=== PATIENT | male | born 1990 | race Asian ===

== ENCOUNTER 2020-10-21 18:19 | Emergency (ER) | payer OTHER, SELFPAY ==
[2020-10-21 18:20] VITALS: BP 98/69; PULSE 115; RESP 17; TEMP 35.4; O2SAT 97; BMI 29.4
[2020-10-21 21:33] VITALS: BP 122/72; PULSE 90; RESP 19; TEMP 38.7; O2SAT 97
[2020-10-21] MEDS: 0.9% Normal Saline 1,000 ML 1000 ML IV (21:37)
[2020-10-21] MEDS: Ketorolac 30 MG/ML Syringe IV (21:38)
--- NOTE | 2020-10-21 21:42 | RAD_ITS ---
INDICATION: cough EXAMINATION/TECHNIQUE: X-RAY - XR Chest 1 View COMPARISON: None. FINDINGS: Subtle bilateral airspace opacities. The cardiomediastinal silhouette is unremarkable. No pleural effusion or pneumothorax. No acute osseous abnormalities. RAD/Chest 1 View (Portable) IMPRESSION: Subtle bilateral airspace opacities could represent infection in the correct clinical setting. Electronically Signed: Marino Grimm MD at 22:18 EDT Tel , Service support ,
[2020-10-21 22:18] LABS: D-Dimer Quantitative (DVT/PE) 0.82 FEU/ug/m (0.27-0.49)
--- NOTE | 2020-10-21 22:28 | ED.RN ---
ddimer elevated 0.82 dr notified
[2020-10-21] MEDS: Acetaminophen 500 MG Tablet 1000 MG PO (22:52)
[2020-10-21 22:54] VITALS: BP 112/62; PULSE 100; PULSE 94; RESP 20; TEMP 37.7; O2SAT 96
[2020-10-21 22:56] VITALS: BP 112/62; PULSE 104; RESP 20; TEMP 37.7; O2SAT 95
--- NOTE | 2020-10-21 23:30 | CT_ITS ---
EXAM: CT ANGIOGRAPHY CHEST WITHOUT AND WITH INTRAVENOUS CONTRAST : 1990 CLINICAL INDICATION: elevated d dimer TECHNIQUE: Helically acquired angiography images were obtained of the chest without and with intravenous contrast. This CT exam was performed using one or more of the following dose reduction techniques: automated exposure control, adjustment of the mA and/or kV according to patient size, and/or use of iterative reconstruction technique. This report was created using [employer] report generation technology. MIP reconstructed images were created and reviewed. CONTRAST: IV 100mL [id number] COMPARISON: None. FINDINGS: PULMONARY ARTERIES: Unremarkable. Normal in caliber. No evidence of pulmonary embolism. AORTA: Unremarkable. Normal in caliber. No evidence of dissection. GREAT VESSELS OF AORTIC ARCH: Unremarkable. Normal in caliber. No evidence of dissection. LUNGS AND PLEURAL SPACES: There are groundglass opacities seen within both lungs No mass. No pleural effusion or thickening. No pneumothorax. HEART: Unremarkable. Heart size is normal. No pericardial effusion. No signs of right heart strain. MEDIASTINUM: Unremarkable. No mediastinal or hilar adenopathy. Esophagus is unremarkable. No hiatal hernia. THYROID: Unremarkable. No thyroid lesions. BONES/JOINTS: Unremarkable. No suspicious lytic or blastic abnormality. CT/CTA Chest W/WO Contrast IMPRESSION: 1. No evidence of pulmonary embolus. 2. Bilateral groundglass opacities. Imaging features can be seen with COVID 19 pneumonia, though are nonspecific and can occur with a variety of infectious and noninfectious processes. Individualized dose optimization techniques were used for this CT. at 0018 Reported and signed by: Waylon Espinoza MD Electronically Signed: Waylon Espinoza MD at 0:16 EDT Tel , Service support ,
--- NOTE | 2020-10-22 00:31 | EX.ED.DYSGE1 ---
HPI History of Present Illness Chief Complaint: Fever Informant: patient Narrative Narrative: 30-year-old male presenting with fever. Patient states this started 1 week ago. He complains of fever, chills. He complains of sore throat and painful swallowing. Denies difficulty swallowing. He complains of shortness of breath and cough. He complains of myalgias. He denies loss of sense of taste or smell. Denies known exposure to Covid. He did recently travel to [place] by car. He has been taking ibuprofen for his fever. He denies sick contacts. Denies abdominal pain, vomiting, diarrhea. Denies other complaints. Recent Illness/Hospitalization: No PFSH PFSH Allergy/AdvReac Type Severity Reaction Status Date / Time No Known Allergies Allergy Verified 10/21/20 18:20 Social History Smoking Status: Never smoker ROS ROS ED Constitutional Constitutional ED: Reports chills and fever(s) Eyes Eyes: Denies change in vision ENT ENT ED: Reports sore throat; Denies rhinorrhea Cardiovascular Cardiovascular: Denies chest pain or palpitations Respiratory/Chest Respiratory/Chest: Reports cough and dyspnea Gastrointestinal Gastrointestinal: Denies abdominal pain, diarrhea, nausea or vomiting Genitourinary Genitourinary ED: Denies dysuria Musculoskeletal Musculoskeletal: Reports myalgias Integumentary Denies rash Neurologic Neurologic: Reports headache(s) Psychiatric Psychiatric: Denies suicidal thoughts EXAM Physical Exam Const Vital Signs: 10/21/20 18:20 10/21/20 21:33 10/21/20 21:39 Temperature 95.7 F L 101.6 F H Temperature Source Temporal Oral Pulse Rate 115 H 90 Respiratory Rate 17 19 H Respiratory Pattern Tachypnea Blood Pressure 98/69 122/72 H Blood Pressure Mean 78 88 Pulse Ox 97 97 Oxygen Delivery Method Room Air Room Air 10/21/20 22:54 10/21/20 22:56 10/22/20 01:03 Temperature 99.9 F H 99.8 F H 98.7 F Temperature Source Oral Oral Oral Pulse Rate 100 104 H 94 Respiratory Rate 20 H 20 H 16 Respiratory Pattern Blood Pressure 112/62 112/62 103/66 Blood Pressure Mean 78 78 78 Pulse Ox 96 95 94 Oxygen Delivery Method Room Air Room Air Room Air 10/22/20 01:04 Temperature 99.8 F H Temperature Source Pulse Rate 101 H Respiratory Rate 18 Respiratory Pattern Blood Pressure 103/66 Blood Pressure Mean Pulse Ox 95 Oxygen Delivery Method Positive well nourished and well developed General Appearance ED: well developed HEENT Reports normocephalic and head/scalp atraumatic HEENT Narrative: Pharyngeal erythema with no exudate. Uvula midline Eyes PERRL and EOMs intact bilaterally Neck supple Neck Narrative: No meningismus General: Negative for tenderness Chest Wall inspection of chest normal Resp normal respiratory effort and clear to auscultation bilaterally Cardio regular rate and regular rhythm GI non-tender and non-distended Palpation: soft; Negative for guarding or rebound tenderness present no CVA tenderness Extremity normal to inspection Neuro oriented x3 Sensorium / Orientation: alert Psych mental status grossly normal Skin no rashes or lesions noted MDM MDM MDM Narrative Medical decision making narrative: Patient was given IV fluids, Toradol. He then developed fever and was given Tylenol with improvement. Covid is negative. Rapid strep negative. Due to elevated D-dimer, CTA chest was obtained. CTA chest shows bilateral opacities which may be seen with COVID-19. No evidence of PE. Due to his symptoms and CT findings Covid PCR was ordered. Ambulatory pulse ox remains 93 to 95% on room air. 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 Advised return to ED for worsening complaints. Lab Data Attestation: I reviewed the patient's lab results. Labs: Laboratory Results - last 24 hr 10/21/20 21:30 D-Dimer Quant (PE/DVT) 0.82 H* Radiography Diagnostic Testing: Radiology Impression Chest X-Ray 10/21/20 21:42 IMPRESSION: Subtle bilateral airspace opacities could represent infection in the correct clinical setting. Electronically Signed: Marino Grimm MD at 22:18 EDT Tel , Service support , Chest CTA 10/21/20 23:30 IMPRESSION: 1. No evidence of pulmonary embolus. 2. Bilateral groundglass opacities. Imaging features can be seen with COVID 19 pneumonia, though are nonspecific and can occur with a variety of infectious and noninfectious processes. Individualized dose optimization techniques were used for this CT. at 0018 Reported and signed by: Waylon Espinoza MD Electronically Signed: Waylon Espinoza MD at 0:16 EDT Tel , Service support , Discharge Plan Triage Chief Complaint: Fever ED Provider: Jacqueline Karimi Dx/Rx/DC Orders Clinical Impression: Acute viral syndrome Instructions: ED Viral Syndrome (Adult) Primary Care Provider: Care Physician,No Primary Referrals: Perri Jay MD [STAFF PHYSICIAN] - 3-5 Days if not improving Care Physician,No Primary [Primary Care Provider] - Disposition Disposition: Home, self care
[2020-10-22 01:03] VITALS: BP 103/66; PULSE 94; RESP 16; TEMP 37.1; O2SAT 94
[2020-10-22 01:04] VITALS: BP 103/66; PULSE 101; RESP 18; TEMP 37.7; O2SAT 95
== END 2020-10-22 01:21 | disposition home or self-care (01) ==
PROVIDERS: Emergency Provider Emergency Medicine
DX: U07.1 COVID-19 (principal); R79.89 Other specified abnormal findings of blood chemistry
CPT/HCPCS: 71045; 71275; 85379; 87426; 87635; 87880; 96361; 96374; 99285; J7030; Q9967; A4216; U0002; U0003